=== PATIENT | female | born 1970 | race Caucasian/White ===

== ENCOUNTER 2020-08-15 10:25 | Emergency (ER) | payer MEDICAID ==
[~2020-08-15] VITALS: Ht 175.3 cm; Wt 76.7 kg
[2020-08-15 11:04] VITALS: Ht 175.3 cm; Wt 76.7 kg
[2020-08-15 12:21] VITALS: BP 159/87
== END 2020-08-15 12:21 | disposition home or self-care (01) ==
LOC: ED 10:25
DX: M25.512 Pain in left shoulder (principal); G89.29 Other chronic pain; I10 Essential (primary) hypertension
CPT/HCPCS: J1885